=== PATIENT | male | born 1990 | race Caucasian/White ===

== ENCOUNTER 2019-05-01 16:30 | Outpatient (RCR) | payer OTHER, SELFPAY | END 2019-05-09 23:59 | LOC: NS 16:30 | PROVIDERS: Visit Provider Family Medicine | DX: E66.9 Obesity, unspecified (principal); Z68.31 Body mass index [BMI] 31.0-31.9, adult; Z71.3 Dietary counseling and surveillance | CPT/HCPCS: 97803 ==

== ENCOUNTER 2019-05-31 16:00 | Outpatient (RCR) | payer OTHER, SELFPAY ==
[2015-11-11 13:09] VITALS: BMI 27.6
== END 2019-06-09 23:59 ==
LOC: NS 16:00
PROVIDERS: Visit Provider Family Medicine
DX: E66.9 Obesity, unspecified (principal); Z68.31 Body mass index [BMI] 31.0-31.9, adult; Z71.3 Dietary counseling and surveillance
CPT/HCPCS: 97803

== ENCOUNTER 2019-06-27 16:30 | Outpatient (RCR) | payer OTHER, SELFPAY ==
[2015-11-11 13:09] VITALS: BMI 27.6
== END 2019-07-09 23:59 ==
LOC: NS 16:30
PROVIDERS: Visit Provider Family Medicine
DX: E66.9 Obesity, unspecified (principal); Z68.31 Body mass index [BMI] 31.0-31.9, adult; Z71.3 Dietary counseling and surveillance
CPT/HCPCS: 97803

== ENCOUNTER 2019-08-01 15:30 | Outpatient (RCR) | payer OTHER, SELFPAY ==
[2015-11-11 13:09] VITALS: BMI 27.6
== END 2019-08-09 23:59 ==
LOC: NS 15:30
PROVIDERS: Visit Provider Family Medicine
DX: E66.9 Obesity, unspecified (principal); Z68.31 Body mass index [BMI] 31.0-31.9, adult; Z71.3 Dietary counseling and surveillance
CPT/HCPCS: 97803

== ENCOUNTER 2019-08-22 14:27 | Outpatient (RCR) | payer OTHER, SELFPAY ==
[2015-11-11 13:09] VITALS: BMI 27.6
== END 2019-09-08 23:59 ==
LOC: NS 14:27
PROVIDERS: Visit Provider Family Medicine
DX: Z71.3 Dietary counseling and surveillance (principal); E66.9 Obesity, unspecified; Z68.31 Body mass index [BMI] 31.0-31.9, adult
CPT/HCPCS: 97803

== ENCOUNTER 2019-12-18 15:41 | Outpatient (RCR) | payer OTHER, SELFPAY ==
[2015-11-11 13:09] VITALS: BMI 27.6
== END 2019-12-18 23:59 | disposition home or self-care (01) ==
LOC: NS 15:41
PROVIDERS: Visit Provider Family Medicine
DX: Z71.3 Dietary counseling and surveillance (principal); E66.9 Obesity, unspecified; Z68.31 Body mass index [BMI] 31.0-31.9, adult
CPT/HCPCS: 97803

== ENCOUNTER → 2024-12-04 | Outpatient (CLI) | payer BC, SELFPAY ==
[2024-12-04 17:51] LABS: Absolute Lymphocyte Count 1.93 X10^3/uL (0.83-4.51); Absolute Neutrophil Count 2.7 X10^3/uL (2.0-7.7); Basophil# 0.03 X10^3/uL; Basophil% 0.6 % (0-1); Eosinophil# 0.12 X10^3/uL; Eosinophils% 2.3 % (0-5); Hematocrit 42.7 % (40-54); Lymphocyte # 1.93 X10^3/ul (0.83-4.51); Lymphocyte % 37.4 % (19-41); Mean Corp Hgb Conc 32.8 g/dL (32-36); Mean Corpuscular Volume 94.7 fL (80-94); Mean Platelet Vol. 10.4 fl (6.2-12.0); Monocyte% 7.8 % (0-10); NRBC Flagged by Analyzer 0 % (0-5); Neutrophil # 2.66 X10^3/uL (2.7-7.7); Neutrophil % 51.5 % (47-70); Platelet Count 191 K/mm3 (150-450); RBC Distribution Width CV 12.1 % (11.6-14.6); RBC Distribution Width SD 41.7 fl (35.1-43.9); Red Blood Count 4.51 M/mm3 (4.6-6.2); White Blood Count 5.2 K/mm3 (4.4-11.0)
[2024-12-04 20:46] LABS: ALB/GLOB Ratio 1.7 RATIO (0.9-2.4); AST(SGOT) 22 U/L (<=37); Alanine Aminotransfer ALT/SGPT 37 U/L (<=46); Albumin, Serum 4.3 g/dL (3.5-5.0); Alkaline Phosphatase 56 U/L (40-129); Anion Gap 12 (5-15); BUN 17 mg/dL (4-19); BUN/Creat Ratio 14.9 RATIO (10-20); Calcium 9.1 mg/dL (7.6-11.0); Carbon Dioxide 23.8 mmol/L (22.0-29.0); Chloride 104 mmol/L (96-108); Cholesterol 180 mg/dL (<=200); Creatinine, Serum 1.1 mg/dL (0.8-1.3); EST Glomerular Filtration Rate 90 (>60); Globulin 2.6 g/dL (2.2-4.2); Glucose 93 mg/dL (70-99); High Density Lipoprotein 41 mg/dL; Potassium 3.9 mmol/L (3.3-5.1); Protein, Total 6.9 g/dL (5.9-8.4); Sodium Level 140 mmol/L (133-145); Total Bilirubin 0.27 mg/dL (0.00-1.30); Triglycerides 128 mg/dL; Very Low Density Lipoprotein 26 mg/dL (5-40); Vitamin B12 676 pg/mL (180-914); Vitamin D,25 Hydroxy 18.4 ng/mL (30-100)
[2024-12-05 19:30] LABS: Hemoglobin A1c 5.1 % (<=5.6)
== END | disposition home or self-care (01) ==
LOC: BFHLAB 13:54
PROVIDERS: PCP Nurse Practitioner Family; Visit Provider Nurse Practitioner Family
DX: Z00.01 Encounter for general adult medical examination with abnormal findings (principal); Z83.49 Family history of other endocrine, nutritional and metabolic diseases; R53.83 Other fatigue; Z83.3 Family history of diabetes mellitus
CPT/HCPCS: 36415; 80053; 80061; 82306; 82607; 83036; 84439; 84443; 85025

== ENCOUNTER → 2025-01-08 | Outpatient (CLI) | payer BC, SELFPAY ==
--- NOTE | 2025-01-08 15:05 | LES_PTH ---
PATIENT: BERRY ALEXANDRA LOC: [facility] U#:[id number] AGE/SX: 34/M ROOM: RE01/08/[address]: ROBIN Lynch : 1990 BED: DIS: 01/08/2025 SPEC #: [id number] RECD: 01/08/25 15:49 STATUS: PROMISE GRIFFIN #: [id number] BRONSON: 01/08/25 15:[address]: Pilar Weinstein DEPT: SURGICAL PATHOLOGY RECD BY: Itz Caballero Tissues: A - Skin of arm B - Skin of back, NOS Procedures: Surgery Specimen Level IV HEADER OPERATION: Punch biopsy right upper arm and left lower back PRE-OP DIAGNOSIS: Suspicious lipoma TISSUE SUBMITTED: A- Right upper arm, B- Left lower back MICROSCOPIC DIAGNOSIS A. Skin, Right Upper Arm, Suspicious Lipoma, Punch Biopsy: * Unremarkable epidermis and dermis with no specific pathologic change. * No adipose tissue seen. B. Skin, Left Lower Back, Suspicious Lipoma, Punch Biopsy: * Unremarkable epidermis and dermis with no specific pathologic change. * No adipose tissue seen. MICROSCOPIC DESCRIPTION Slides are reviewed. GROSS DESCRIPTION A. Received in formalin in a container labeled with the patient's name, date of , and R upper arm is an unoriented and cylindrical punch biopsy of skin measuring 0.3 x 0.3 cm with a depth of 0.7 cm. The white-white epidermis is grossly unremarkable. The deep margin is inked green, and the specimen is submitted entirely in A1. B. Received in formalin in a container labeled with the patient's name, date of , and L low back is an unoriented and cylindrical punch biopsy of skin measuring 0.3 x 0.3 cm with a depth of 0.6 cm. The epidermis is white-white and grossly unremarkable. The deep margin is inked green. .Received in the same container is a 0.3 x 0.2 x 0.2 cm fragment of white-yellow soft tissue. No distinct skin is identified. The specimen is submitted entirely in B1. [facility] 01-08-2025 CPT:11366e6
== END | disposition home or self-care (01) ==
PROVIDERS: PCP Nurse Practitioner Family; Visit Provider Nurse Practitioner Family
DX: L98.9 Disorder of the skin and subcutaneous tissue, unspecified (principal)
CPT/HCPCS: 88305